=== PATIENT | female | born 1935 | race Caucasian/White ===

== ENCOUNTER 2016-06-02 11:51 | Inpatient (IN) | payer MEDICARE, OTHER ==
[~2016-06-02] VITALS: Ht 137.2 cm; Wt 66.6 kg
[2016-06-02] MEDS ORDERED: PHARMACY TO DOSE VANCOMYCIN IV SCH (12:45)
[2016-06-02] MEDS ORDERED: ACETAMINOPHEN 650 MG SUPP RECTAL PRN (12:45)
[2016-06-02] MEDS ORDERED: MAG HYDROX 30 ML UDC PO PRN (12:45)
[2016-06-02] MEDS ORDERED: NEB-ALBUTEROL 2.5 MG/3 ML INH PRN (12:45)
[2016-06-02] MEDS ORDERED: ALU/MAG/SIM 30 ML UDC PO PRN (12:45)
[2016-06-02] MEDS ORDERED: POLYETHYLENE GLYCOL 17 GM PACKET PO PRN (12:45)
[2016-06-02] MEDS ORDERED: PHARMACY TO DOSE ZOSYN IV SCH (12:45)
[2016-06-02] MEDS ORDERED: ACETAMINOPHEN 325 MG TAB PO PRN (12:45)
[2016-06-02] MEDS ORDERED: PNEUMO VAC 25 MCG/0.5 ML VL IM.VACC ONE (12:45)
[2016-06-02 14:58] VITALS: RESP 22
[2016-06-02] MEDS: DUONEB INH SCH ×3 (15:04→22:27)
[2016-06-02 17:30] VITALS: BP_SYST 122; RESP 18; TEMP 98.6
[2016-06-02 19:39] VITALS: BMI 35.4
[2016-06-02] MEDS: NEB-BUDESONIDE 0.5 MG INH SCH (20:06)
[2016-06-02] MEDS: NEB-BROVANA 15 MCG/2 ML INH SCH (20:06)
[2016-06-02] MEDS ORDERED: TUBERCULIN PPD 5 UNIT SYR ID.VACC ONE (21:00)
[2016-06-02] MEDS: SACCHA BOULARDII 250MG CAP PO SCH (22:09)
[2016-06-02] MEDS: PIPERACIL/TAZO 3.375GM/50ML 50 ML IV SCH (22:09)
[2016-06-02] MEDS ORDERED: SODIUM CHLORIDE 0.9% FLUSH BAG 500 ML IV PRN (22:55)
[2016-06-03 00:47] VITALS: BP_SYST 116; RESP 20; TEMP 98
[2016-06-03] MEDS: DUONEB INH SCH ×6 (02:08→22:45)
[2016-06-03] MEDS: PIPERACIL/TAZO 3.375GM/50ML 50 ML IV SCH ×3 (03:43→15:45)
[2016-06-03] MEDS ORDERED: VANCOMYCIN 1,250 MG in SODIUM CHLORIDE 0.9% 250 ML IV SCH (05:00)
[2016-06-03] MEDS: NEB-BUDESONIDE 0.5 MG INH SCH ×2 (06:22→18:12)
[2016-06-03] MEDS: NEB-BROVANA 15 MCG/2 ML INH SCH ×2 (06:22→18:12)
[2016-06-03] MEDS: LEVOTHYROXINE 0.075 MG TAB PO SCH (06:34)
[2016-06-03] MEDS: SACCHA BOULARDII 250MG CAP PO SCH ×2 (09:55→20:45)
[2016-06-03 10:41] VITALS: BP_SYST 111; RESP 18; TEMP 98.6
[2016-06-03 16:29] VITALS: BP_SYST 123; RESP 18; TEMP 98.2
[2016-06-03] MEDS: FAMOTIDINE 20 MG TAB PO SCH (20:45)
[2016-06-03] MEDS ORDERED: NAPROXEN 500 MG PO SCH (21:00)
[2016-06-04] MEDS: DUONEB INH SCH ×6 (03:12→22:44)
[2016-06-04 06:27] VITALS: BP_SYST 122; RESP 18; TEMP 97.6
[2016-06-04] MEDS: LEVOTHYROXINE 0.075 MG TAB PO SCH (07:30)
[2016-06-04] MEDS: NEB-BUDESONIDE 0.5 MG INH SCH ×2 (07:41→19:05)
[2016-06-04] MEDS: NEB-BROVANA 15 MCG/2 ML INH SCH ×2 (07:41→19:05)
[2016-06-04] MEDS: FAMOTIDINE 20 MG TAB PO SCH ×2 (08:31→20:14)
[2016-06-04] MEDS: SACCHA BOULARDII 250MG CAP PO SCH ×2 (08:31→20:13)
[2016-06-04 09:23] VITALS: BP_SYST 115; RESP 18; TEMP 98.3
[2016-06-04 11:16] VITALS: Ht 137.2 cm; Wt 66.6 kg
[2016-06-04 15:24] VITALS: BP_SYST 118; RESP 18; TEMP 98.5
[2016-06-04] MEDS ORDERED: SKIN TEST: READ AND RECORD XX SCH (21:00)
[2016-06-05 01:59] VITALS: BP_SYST 115; RESP 18; TEMP 97.6
[2016-06-05] MEDS: DUONEB INH SCH ×6 (02:58→23:01)
[2016-06-05] MEDS: LEVOTHYROXINE 0.075 MG TAB PO SCH (04:53)
[2016-06-05] MEDS: NEB-BROVANA 15 MCG/2 ML INH SCH ×2 (07:40→17:14)
[2016-06-05] MEDS: NEB-BUDESONIDE 0.5 MG INH SCH ×2 (07:40→17:14)
[2016-06-05] MEDS: SACCHA BOULARDII 250MG CAP PO SCH ×2 (09:46→21:08)
[2016-06-05 10:05] VITALS: BP_SYST 107; RESP 18; TEMP 97.9
[2016-06-05] MEDS ORDERED: METHYLPRED SOD SUCC 40 MG VIAL IV ONE (14:25)
[2016-06-05] MEDS ORDERED: BUPIVACAINE 0.5% PF 10ML NERVEBLOCK ONE (14:25)
[2016-06-05 15:49] VITALS: BP_SYST 116; RESP 18; TEMP 98.2
[2016-06-06 00:28] VITALS: BP_SYST 110; RESP 20; TEMP 97.9
[2016-06-06] MEDS: DUONEB INH SCH ×5 (02:32→18:11)
[2016-06-06] MEDS: LEVOTHYROXINE 0.075 MG TAB PO SCH (06:18)
[2016-06-06] MEDS: NEB-BROVANA 15 MCG/2 ML INH SCH ×2 (07:33→18:11)
[2016-06-06] MEDS: NEB-BUDESONIDE 0.5 MG INH SCH ×2 (07:33→18:11)
[2016-06-06] MEDS: SACCHA BOULARDII 250MG CAP PO SCH ×2 (09:12→20:38)
[2016-06-06 10:28] VITALS: BP_SYST 105; RESP 18; TEMP 97.5
[2016-06-06] MEDS: MICONAZOLE 2% PWD TOPICAL SCH ×2 (14:00→20:43)
[2016-06-06 15:56] VITALS: BP_SYST 114; RESP 20; TEMP 97.4
[2016-06-07 00:01] VITALS: BP_SYST 111; RESP 20; TEMP 97.7
[2016-06-07] MEDS: DUONEB INH SCH ×4 (00:23→11:00)
[2016-06-07] MEDS: LEVOTHYROXINE 0.075 MG TAB PO SCH (06:38)
[2016-06-07] MEDS: NEB-BROVANA 15 MCG/2 ML INH SCH (07:51)
[2016-06-07] MEDS: NEB-BUDESONIDE 0.5 MG INH SCH (07:51)
[2016-06-07] MEDS: MICONAZOLE 2% PWD TOPICAL SCH (08:43)
[2016-06-07] MEDS: SACCHA BOULARDII 250MG CAP PO SCH (08:43)
[2016-06-07 09:45] VITALS: BP_SYST 111; RESP 20; TEMP 97.6
[2016-06-07 10:13] VITALS: BP_SYST 111; RESP 20; TEMP 97.7
[2016-06-09] MEDS ORDERED: TUBERCULIN PPD 5 UNIT SYR ID.VACC ONE (21:00)
== END 2016-06-07 14:42 | disposition home or self-care (01) | DRG 556 ==
LOC: NF 15:28 → DELPENDDIS 15:28 → ENPENDDIS 15:28 → NF 15:43
PROVIDERS: ADMIT Family Medicine; ATTEND Family Medicine
CPT/HCPCS: 80048; 94640; 94667; 94668; 94799; 99306; 99308; 99309; 99316